=== PATIENT | female | born 1965 | race Caucasian/White ===

== ENCOUNTER 2018-09-10 21:27 | Emergency (ER) | payer SELFPAY ==
[~2018-09-10] VITALS: Ht 167.6 cm; Wt 90.3 kg
[2018-09-10 21:47] VITALS: Ht 167.6 cm; Wt 90.3 kg
[2018-09-11 00:55] VITALS: BP 124/80
== END 2018-09-11 00:55 | disposition home or self-care (01) ==
LOC: ED 21:27
DX: S00.93XA Contusion of unspecified part of head, initial encounter (principal); Z90.49 Acquired absence of other specified parts of digestive tract; W20.8XXA Other cause of strike by thrown, projected or falling object, initial encounter; Y93.89 Activity, other specified; Y92.89 Other specified places as the place of occurrence of the external cause; Y99.8 Other external cause status